=== PATIENT | female | born 1985 | race Asian ===

== ENCOUNTER → 2021-07-05 16:00 | Outpatient (CLI) | payer OTHER, SELFPAY ==
[2021-07-05 16:48] LABS: Add Manual Diff / Slide Review NO; Basophils Absolute Auto 0 /uL (0-100); Basophils Percent Auto 0.5 % (0-2); Eosinophils Absolute Auto 100 /uL (0-450); Eosinophils Percent Auto 1.8 % (2-4); Lymphocytes Absolute Auto 1600 /uL (1100-4500); Lymphocytes Percent Auto 24.5 % (25-40); Mean Corpuscular HGB Conc 34.1 % (30-36); Mean Corpuscular Hemoglobin 30.9 PG (26-34); Mean Corpuscular Volume 90.5 fL (80-100); Monocytes Absolute Auto 400 /uL (0-900); Monocytes Percent Auto 6.6 % (3-14); Neutrophils Absolute Auto 4400 /uL (1500-7000); Neutrophils Percent Auto 66.6 % (50-75); Platelet Count 261 X10^3/uL (150-400); Red Blood Cell Count 4.19 X10^6/uL (4.0-5.2); Red Cell Distribution Width 12.7 % (11.6-14.8); White Blood Cell Count 6.7 X10^3/uL (4.5-11.0)
[2021-07-05 17:31] LABS: Appearance Urine UA CLEAR; Bilirubin Urine UA NEGATIVE (NEGATIVE); Color Urine UA YELLOW; Glucose Urine UA NEGATIVE (Negative); Ketones Urine UA NEGATIVE (NEGATIVE); Leukocyte Esterase Urine UA TRACE (NEGATIVE); Nitrite Urine UA NEGATIVE (Negative); Occult Blood Urine UA TRACE-LYSED (Negative); Protein Urine UA NEGATIVE (Negative); Specific Gravity Urine UA 1.025 (1.000-1.035); Urobilinogen Urine UA 0.2 E.U./dL (0.2)
[2021-07-05 17:43] LABS: RBC Urine None Seen (0-5/HPF); Squamous Epithelial Cell Urine 0-1 /HPF (0-5/HPF); WBC Urine 0-1/HPF (0-5/HPF)
[2021-07-05 17:44] LABS: Bacteria Urine Occasional (0-1); Mucus Urine 1+ (Negative)
[2021-07-05 18:05] LABS: Hepatitis B Surface Antigen NEGATIVE s/c (NEGATIVE); Rubella Antibody IgG 30.3 IU/mL (>15)
[2021-07-05 18:11] LABS: HIV 1 & 2 Ab/Ag 4th Gen Combo NEGATIVE (NEGATIVE); Hep C Virus Ab w/Reflex Quant NEGATIVE s/c (NEGATIVE)
[2021-07-06 09:40] LABS: RPR Screen Non Reactive (Non Reactive)
[2021-07-07 08:14] LABS: Varicella IgG Antibody <135 index (Immune >165)
== END ==
PROVIDERS: Referring Provider Family Medicine; Visit Provider Family Medicine
DX: Z34.81 Encounter for supervision of other normal pregnancy, first trimester (principal); Z34.82 Encounter for supervision of other normal pregnancy, second trimester; Z3A.14 14 weeks gestation of pregnancy
CPT/HCPCS: 36415; 80055; 81003; 81015; 81420; 86787; 86803; 86850; 86900; 86901; 87086; 87389

== ENCOUNTER → 2021-08-15 14:54 | Outpatient (CLI) | payer OTHER, SELFPAY ==
--- NOTE | 2021-08-15 14:55 | DI.US.S_ITS ---
PROCEDURE: US OB >= 14 WEEKS FETUS INDICATIONS: ANATOMY OUTSIDE/PRIOR DATING DATA: Estimated date of delivery (MAGDA) from first dating scan: 08/15/2021. The calculations are made using the 12/28/2021 MAGDA of 12/28/2021. TECHNIQUE: Real-time scanning was performed of the fetus, with image documentation and biometric measurements. Endovaginal scanning: No COMPARISON: None. FINDINGS: General: A single living intrauterine gestation is present. Presentation: Variable. Placenta: Placental position is anterior , without previa. Amniotic fluid index: 15.9 cm, normal range is 5-24 cm. heart rate: 152 beats per minute. Maternal cervical canal: 4.8 cm cm long. Normal lower limit is 2.5 cm. biometrics: Biparietal diameter: 21 weeks 2 days Head circumference: 21 weeks 1 day Abdominal circumference: 20 weeks 4 days Femur length: 19 weeks 4 days Clinically estimated gestational age: N/a Composite gestational age from present scan: 20 weeks 5 days Estimated weight and percentile: 342 g Anatomic survey: Neuro: Ventricles are non-dilated at less than 10 mm. Cisterna magna is normal at 3-11 mm. Cerebellum is normal in size and morphology. Possible small left choroid plexus cyst. Nuchal skin fold: Normal at less than 6 mm between 14-21 weeks gestational age. Face: Nose and lips, facial profile are normal. Spine: No evidence for spina bifida. Heart: 4-chambered heart is present, with normal ventricular outflow tracts. Left ventricular intracardiac focus. Diaphragm: Diaphragm is intact. Stomach: Left-sided stomach is present. Kidneys: No hydronephrosis. Normal is less than 5 mm in 2nd trimester, less than 7 mm in 3rd trimester. Cord: 3-vessel cord has orthotopic insertion. Marginal cord insertion site. Bladder: Normal in size. Extremities: All 4 extremities identified. IMPRESSION: 1. 20 week 5 day single living IUP. 2. Left ventricular intracardiac focus and possible choroid plexus cysts; otherwise anatomy appears normal. 3. Marginal cord insertion site roughly 1.2 cm from the placental edge. We strive to produce accurate, complete, and clear reports of imaging services. To assist us in improving patient care, this report was composed using standard report templates and voice recognition software. Therefore, it may contain abnormal punctuation, insertions and/or omissions. Occasional wrong-word or sound-alike substitutions may occur. Though we review the report and make efforts to correct it, we do recommend that the report be read carefully in proper context to recognize any text inaccuracies. Dictated by: Valerio DASILVA Interpreted: Nora Santiago MD on 08/15/2021 at 16:46 Transcribed by: KATHLEEN on 08/15/2021 at 16:51 Approved by: Nora Santiago M.D. on 08/15/2021 at 17:01
== END ==
PROVIDERS: Referring Provider Family Medicine; Visit Provider Family Medicine
DX: Z36.89 Encounter for other specified antenatal screening (principal); Z3A.20 20 weeks gestation of pregnancy
CPT/HCPCS: 76811

== ENCOUNTER → 2021-10-05 13:13 | Outpatient (CLI) | payer OTHER, SELFPAY ==
[2021-10-05 15:13] LABS: Hematocrit 36.4 % (36-46); Hemoglobin 12.2 g/dL (12.0-16.0)
[2021-10-05 16:00] LABS: GTT (PREG) 1 Hour PP 50gm Dose 126 mg/dL (76-139)
== END ==
PROVIDERS: Family Medicine; Referring Provider Family Medicine; Visit Provider Family Medicine
DX: Z3A.27 27 weeks gestation of pregnancy (principal); Z34.92 Encounter for supervision of normal pregnancy, unspecified, second trimester
CPT/HCPCS: 36415; 82950; 85014; 85018

== ENCOUNTER → 2021-12-05 14:20 | Outpatient (CLI) | payer OTHER, SELFPAY ==
[2021-12-06 13:53] LABS: Strep Grp B PCR NEG for Grp B Strep
== END ==
PROVIDERS: Visit Provider Family Medicine
DX: Z36.85 Encounter for antenatal screening for Streptococcus B (principal); Z3A.36 36 weeks gestation of pregnancy
CPT/HCPCS: 87653

== ENCOUNTER 2021-12-16 11:49 | Inpatient (IN) | payer OTHER, SELFPAY ==
[2021-12-16 13:27] LABS: COVID19 -Nasal RAPID Negative (Negative)
[2021-12-16 13:38] LABS: Add Manual Diff / Slide Review NO; Basophils Absolute Auto 0 /uL (0-100); Basophils Percent Auto 0.3 % (0-2); Eosinophils Absolute Auto 0 /uL (0-450); Eosinophils Percent Auto 0.5 % (2-4); Hematocrit 38.1 % (36-46); Hemoglobin 13.2 g/dL (12.0-16.0); Lymphocytes Absolute Auto 1300 /uL (1100-4500); Lymphocytes Percent Auto 15.4 % (25-40); Mean Corpuscular HGB Conc 34.5 % (30-36); Mean Corpuscular Hemoglobin 31.5 PG (26-34); Mean Corpuscular Volume 91.1 fL (80-100); Monocytes Absolute Auto 500 /uL (0-900); Monocytes Percent Auto 5.8 % (3-14); Neutrophils Absolute Auto 6400 /uL (1500-7000); Platelet Count 244 X10^3/uL (150-400); Red Blood Cell Count 4.18 X10^6/uL (4.0-5.2); Red Cell Distribution Width 13.6 % (11.6-14.8); White Blood Cell Count 8.2 X10^3/uL (4.5-11.0)
[2021-12-16] MEDS: LACTATED RINGERS 1,000 ML 100 ML IV ×2 (14:54→16:07)
[2021-12-16] MEDS: fentaNYL 100 MCG/2 ML INJ (16:07)
--- NOTE | 2021-12-16 16:07 | PM.AN.REGBLK ---
Regional Block Pre-procedure Procedure: Continuous Lumbar Epidural for L&D Attending OB provider: Cindy Diaz PMH/ROS narrative: Hx: No personal or family history of anesthesia problems. PSH/Anesthesia history narrative: previous epidural without issues Exam narrative: MP3, RRR, CTAB ASA Class: II Labs: Hct 38.1 % (36-46) 12/16/21 12:45 Plt Count 244 X10^3/uL (150-400) 12/16/21 12:45 Medications: Current Medications Generic Name Dose Route Start Last Admin Trade Name Freq PRN Reason Stop Dose Admin Carboprost Tromethamine 250 mcg 12/16/21 13:23 Carboprost 250 Mcg/Ml Ampul IM Q90M PRN Bleeding Lactated Ringer's 1,000 mls @ 100 mls/hr 12/16/21 13:30 12/16/21 14:54 Lactated Ringers IV 100 mls/hr CONT LIVE Administration Oxytocin/Lactated Ringer's 30 unit in 500 mls @ 200 mls/hr 12/16/21 13:23 Oxytocin Premix IV CONT PRN Bleeding Protocol Tranexamic Acid 1,000 mg/ 100 mls @ 200 mls/hr 12/16/21 13:23 Sodium Chloride IV NOW PRN Bleeding Methylergonovine Maleate 0.2 mg 12/16/21 13:23 Methylergonovine 0.2 Mg Tablet PO Q6HR PRN Heavy Bleeding Methylergonovine Maleate 0.2 mg 12/16/21 13:23 Methylergonovine 0.2 Mg/Ml Vial IM NOW PRN Bleeding Misoprostol 800 mcg 12/16/21 13:23 Misoprostol 200 Mcg Tablet [place] NOW PRN Bleeding Misoprostol 1,000 mcg 12/16/21 13:23 Misoprostol 200 Mcg Tablet [place] NOW PRN Bleeding Misoprostol 400 mcg 12/16/21 13:23 Misoprostol 200 Mcg Tablet SL NOW PRN Bleeding Oxytocin 10 unit 12/16/21 13:23 Oxytocin 10 Unit/Ml Vial IM NOW PRN Bleeding Allergies: Allergies Allergy/AdvReac Type Severity Reaction Status Date / Time No Known Drug Allergies Allergy Verified 10/31/21 12:14 Procedure Insertion date: 12/16/21 Insertion time: 15:42 Prep/Local: betadine x3 (chloroprep) and 1% lidocaine Interspace: L2-3 Patient position: sitting Needle: 18 gauge Seratead (with 27G pencil point needle-through needle for IT dose) Loss of resistance with: saline (with air bubble) AALIYAH at (cm): 6 Catheter placed at SKIN (cm): 11 Catheter in SPACE (cm): 5 Insertion: Yes CSF, No Blood, No Paresthesia with insertion, No Paresthesia with injection and No Test dose reaction Initial Medications TEST DOSE time: 15:42 TEST DOSE: 1.5% lidocaine with epinephrine 1:200k (mL): 5 (3mL initial test dose, 2mL as part of first bolus) BOLUS DOSE time: 15:43 BOLUS DOSE (mL): 2 BOLUS DOSE med: other (10mcg fentanyl intrathecally, 90mcg fentanyl via epidural catheter) Infusion INFUSION: 0.0625% bupivacaine and with fentanyl 2 mcg/mL Initial rate (mL/hr): 10 (PEIB 40 minutes with bolus of 4mL Q15min lockout) Subsequent interventions: Initial placement L3-4, AALIYAH 6cm with saline and air bubble, (+) CSF with needle through needle, 10mcg fentanyl given intrathecally. Catheter threaded easily, but (+) blood on aspiration. Catheter removed and flushed with air. Level above anesthetized with 1% lidocaine, AALIYAH 6 cm, no dural puncture. Catheter threaded easily with negative aspiration. Post-procedure Anesthesia time START: 15:22 Anesthesia time END: 17:09 Post-procedure Anesthesia Assessment: No Anesthesia complications
[2021-12-16] MEDS: FENT 2MCG/ML BUPIV 0.125% EPI 200 MCG/100 ML PLAST..BAG 4 MCG EPIDURAL (16:09)
--- NOTE | 2021-12-16 16:41 | P.HPOB_ITS ---
OB HPI Date/Time Date of admission: 12/16/21 Date Patient Seen: 12/16/21 Time Patient Seen: 04:05 History of Present Condition Chief complaint: active labor, blood on underwear MAGDA Calculator Estimated Delivery Date Method Current WG Current Estimate 12/30/21 Manual 38w 0d Final MAGDA - GREG Other Estimates 12/30/21 LMP (Certain) 38w 0d 12/27/21 Ultrasound #1 38w 3d : 2 Para: 1 care: good care, initiated at week # (10), number of visits (10) and pounds weight gain (21) Dating criteria OB: LMP confirmed by 1st trimester US Ultrasounds: normal 1st trimester US and normal mid trimester US Obstetrical complications: none Medical complications OB: none Preadmission Labs Last OB Lab Results: Blood Type A Positive 12/16/21 12:45 12/16/21 Antibody Screen Negative 12/16/21 12:45 12/16/21 Hematocrit 38.1 % (36-46) 12/16/21 12:45 12/16/21 Hemoglobin 13.2 g/dL (12.0-16.0) 12/16/21 12:45 12/16/21 Hepatitis B Surface Antigen Negative s/c (NEGATIVE) 07/05/21 16:19 07/05/21 Hepatitis C Antibody Negative s/c (NEGATIVE) 07/05/21 16:19 07/05/21 Rubella Antibody 30.3 IU/mL (>15) 07/05/21 16:19 07/05/21 Varicella-Zoster IgG Antibody <135 index (Immune >165) L 07/05/21 16:19 07/05/21 Glucose 1 Hour 126 mg/dL (76-139) 10/05/21 14:20 10/05/21 Group B Streptococcus (PCR) Neg for grp b strep 12/05/21 14:20 12/05/21 -: Chlamydia screen: negative, Gonorrhea screen: negative and Urine: negative Genetic Screens: Cell-free DNA: Normal (normal male) External Labs -: Urine: negative Prior (ies) Past Pregnancies Del. Date GA/Weeks Labor Lgth Wt Sex Route Outcome Anesthesia Place Delv Breastfeed Preg Comp Name 06/29/17 38 5 6 lb 6 oz Female vaginal live - full term ep idural [place] 9 months none [place] Delivery Date: 06/29/17 Last Updated by: Tiffanie Manrique R.N. *SROM 6 am at home. *2nd Tear with Repair. *No issues PP. Evaluation Evaluation Baseline heart rate: 135 Variability: Moderate (11-25) monitor accelerations: Present Monitor Decelerations: Absent Contraction Frequency (minutes): 3 Uterine Contraction Intensity: Strong/Firm Status: Category l Dilation (cm): 9 Effacement (%): 100 station: 0 Position of cervix: anterior Consistency: soft [facility] Medical History (Updated 05/31/21 @ 14:40 by Tiffanie Manrique RN) AMA (advanced maternal age) multigravida 35+ (spontaneous vaginal delivery) (~06/29/17) Surgical History (Updated 05/31/21 @ 14:41 by Tiffanie Manrique RN) [place] teeth extracted Family History (Updated 05/31/21 @ 14:39 by Tiffanie Manrique RN) Father Healthy adult Mother Hypertension Grandfather Old age Grandmother Diabetes mellitus Old age Grandfather Heart disease Grandmother No problems noted. Family/Other Heart problem Social History marital status: number of children: 1 household members: spouse and children lives independently: Yes caregiver/support person: No pets and animals: No education level: college (Economic Management) occupational status: unemployed current occupational exposures/hazards: No special alex needs: No Smoking Status: Never smoker second hand exposure: No alcohol intake: former (pre- : not recently when in University ) substance use type: does not use Meds Home Medications and Allergies Home Medications Medication Instructions Recorded Confirmed Type prenat.vits,,[id number] 1 tab PO DAILY 05/31/21 10/31/21 History double electric breast pump & #1 ea 11/29/21 11/29/21 Rx supplies Allergies Allergy/AdvReac Type Severity Reaction Status Date / Time No Known Drug Allergies Allergy Verified 10/31/21 12:14 OB Exam Narrative Exam Narrative: Generally: Patient comfortable with epidural Lungs: Clear to auscultation bilaterally Cardiovascular: Regular rate and rhythm Fundal height: 37 cm Estimated weight: 6-1/2 lb Extremities: No edema Objective Labs Result Diagrams: 12/16/21 12:45 Labs: Laboratory Results - last 24 hr 12/16/21 12/16/21 12/16/21 12:45 12:45 13:11 WBC 8.2 RBC 4.18 Hgb 13.2 Hct 38.1 MCV 91.1 MCH 31.5 MCHC 34.5 RDW 13.6 Plt Count 244 Neut % (Auto) 78.0 H Lymph % (Auto) 15.4 L [place] % (Auto) 5.8 Eos % (Auto) 0.5 L Baso % (Auto) 0.3 Neut # (Auto) 6400 Lymph # (Auto) 1300 [place] # (Auto) 500 Eos # (Auto) 0 Baso # (Auto) 0 SARS-CoV-2 (PCR) Negative Blood Type A Positive Antibody Screen Negative Assessment and Plan Assessment and Plan Assessment and Plan narrative: Assessment: 36-year-old 2 para 1 at 38 weeks gestation in active labor Comfortable with epidural Bulging bag of water Plan: Artificial rupture of membranes with blood-stained amniotic fluid Expected management to spontaneous vaginal delivery Time Spent with Patient Total time spent with greater than 50% in coordination of care (as documented) at patient's floor/unit and/or counseling patient:: less than 15 minutes
--- NOTE | 2021-12-16 17:26 | PM.OBPRVD ---
Labor & Delivery Delivery date: 12/16/21 Cervical ripening method: none Induction method: none Delivery augmentation: rupture of membranes Delivery monitor: external FHT and external uterine Route of delivery: Episiotomy description: None L&D Laceration Description: Perineal - 1st Degree Delivery repair: chromic Estimated blood loss (mL): 100 Anesthesia Type: Epidural Complications: None Narrative: Patient complete and pushed for 15 minutes. At 5:09 p.m., a live male delivered spontaneously in the [place] presentation. No nuchal cord. The remainder of the body delivered without difficulty and the infant was placed on mom's abdomen. After the cord stopped pulsing, the cord was double clamped and cut. Pitocin was given in the IV fluids. Cord bloods were obtained. The placenta delivered intact with a three-vessel cord at 5:17 p.m.. The fundus was massaged to firm. A first-degree perineal laceration was repaired with 2 0 chromic in the usual fashion. Hemostasis was achieved. Estimated blood loss 100 cc. Apgars 9 at 1 minute and 9 at 5 minutes. Epidural analgesia. . Mom and stable to recovery. weight 7 lb 3.5 oz. Baby 1: gender: Male Presentation: vertex Position: Left Occiput Anterior Placenta delivery description: Spontaneous Cord Vessel Description: 3 Vessels and Clamped/Cut (After cord stopped pulsing) score (1 min): 9 score (5 min): 9 weight: 7 lb 3.5 oz Plan for aftercare: Routine care
[2021-12-17 06:11] LABS: Hematocrit 35.2 % (36-46); Hemoglobin 11.9 g/dL (12.0-16.0)
[2021-12-17] MEDS: PRENATAL VIT,CALC/IRON/FOLIC 1 TABLET 1 TAB PO (08:10)
[2021-12-17] MEDS: DOCUSATE 100 MG CAPSULE PO (08:10)
[2021-12-17] MEDS: IBUPROFEN 600 MG TABLET PO (09:41)
--- NOTE | 2021-12-17 12:23 | PM.OBDS.1 ---
Discharge Providers Provider Date of admission: 12/16/21 11:49 Discharge Date: 12/17/21 Primary care physician: Doctor Renetta MD Consults: 12/16/21 13:26 Consult to Anesthesiology Urgent Comment: Consulting Provider: Anesthesiologist Reason for consultation: epidural 12/17/21 17:24 Consult to Automatic Spinning Lathe Operator Routine Comment: Discharge provider: Cindy Diaz MD Summary Hospital Course Date Patient Seen: 12/17/21 Time Patient Seen: 10:30 Diagnoses: Thirty-eight weeks gestation Artificial rupture of membranes Epidural analgesia Spontaneous vaginal delivery First-degree perineal laceration and repair Hospital Course: Patient is a 36-year-old 2 para 2 presented on December 16, 2021 in active labor. She received an epidural for pain management. Artificial rupture of membranes was performed. She progressed to complete dilation and had a very fast second stage. She had a spontaneous vaginal delivery without complication. She had a first-degree perineal laceration repair. Her course was unremarkable. She is discharged home on day # 1. Peripartum Data Infant Delivery Method: Natural Vaginal Laceration Description: Perineal - 1st Degree Episiotomy description: None Procedures: Epidural analgesia Artificial rupture membranes Spontaneous vaginal delivery First-degree perineal laceration repair complications: none [place] 1: Gender: Male Disposition of : home Status at Discharge Cognitive/behavioral status at discharge: oriented Functional status at discharge: independent ambulation Overall status at discharge: patient is progressing back to baseline Time Spent with Patient Time attestation: Total time spent providing and/or coordinating discharge services: Time spent: Less than 30 minutes Objective Labs Result Diagrams: 12/17/21 05:59 Labs: Laboratory Results - last 24 hr 12/16/21 12/16/21 12/16/21 12:45 12:45 13:11 WBC 8.2 RBC 4.18 Hgb 13.2 Hct 38.1 MCV 91.1 MCH 31.5 MCHC 34.5 RDW 13.6 Plt Count 244 Neut % (Auto) 78.0 H Lymph % (Auto) 15.4 L [place] % (Auto) 5.8 Eos % (Auto) 0.5 L Baso % (Auto) 0.3 Neut # (Auto) 6400 Lymph # (Auto) 1300 [place] # (Auto) 500 Eos # (Auto) 0 Baso # (Auto) 0 SARS-CoV-2 (PCR) Negative Blood Type A Positive Antibody Screen Negative 12/17/21 05:59 WBC RBC Hgb 11.9 L Hct 35.2 L MCV MCH MCHC RDW Plt Count Neut % (Auto) Lymph % (Auto) [place] % (Auto) Eos % (Auto) Baso % (Auto) Neut # (Auto) Lymph # (Auto) [place] # (Auto) Eos # (Auto) Baso # (Auto) SARS-CoV-2 (PCR) Blood Type Antibody Screen Exam Narrative Exam Narrative: Generally: Patient walking around in room, no acute distress Fundus: Firm at U -2 Extremities: Negative [place], no edema Discharge Plan Discharge Plan Patient Disposition: Home Provider Discharge Comment: Call with fever, chills, or bleeding vaginally more than a pad in an hour Ibuprofen 600 mg every 6 hours as needed for cramping Discharge orders & Medications Prescriptions: Continued prenat.vits,,[id number] Tablet 1 tab PO DAILY 0RF No Action (DME) double electric breast pump & supplies See Rx Instructions .ROUTE .MEDSUPPLY Qty: 1 0RF Rx Instructions: As directed Follow up/Referrals: Ada Mariscal MD [Physician] - 6 Weeks Diet/Activity/Treatments Diet: Regular Activity: Nothing in the vagina for 6 weeks Skin/Wound/Dressing Care Report to your healthcare provider any signs of infection, such as:: chills, fever, increased pain and unusual drainage Visit Report/Discharge Packet Instructions: DI for Labor and Delivery, Vaginal Discharge Data Primary Care Provider: Miscellaneous,Doctor
[2021-12-17 13:24] VITALS: BP 120/78; PULSE 83; RESP 16; TEMP 37
== END 2021-12-17 15:04 | disposition home or self-care (01) | DRG 807 ==
PROVIDERS: Admitting Provider Obstetrics & Gynecology; Referring Provider Obstetrics & Gynecology; Visit Provider Obstetrics & Gynecology
DX: O70.0 First degree perineal laceration during delivery (principal); Z37.0 Single live birth; Z3A.38 38 weeks gestation of pregnancy; Z20.822 Contact with and (suspected) exposure to COVID-19
CPT/HCPCS: 01967; 59025; 59050; 59400; 59409; 85014; 85018; 85025; 86850; 86900; 86901; 87635; C9803; G0379; J3010

== ENCOUNTER → 2022-07-19 12:35 | Outpatient (CLI) | payer OTHER, SELFPAY ==
[2022-07-19 14:08] LABS: Influenza A - CEPHEID Flu A NEGATIVE (NEGATIVE); Influenza B - CEPHEID Flu B NEGATIVE (NEGATIVE); Respiratory Syncytial Virus POSITIVE (Negative)
[2022-07-19 14:21] LABS: COVID-19 CEPHEID 4-PLEX PCR Negative (Negative)
== END ==
PROVIDERS: Visit Provider Registered Nurse
DX: R50.9 Fever, unspecified (principal)
CPT/HCPCS: 0241U

== ENCOUNTER → 2024-01-16 15:14 | Outpatient (CLI) | payer OTHER, SELFPAY ==
--- NOTE | 2024-01-16 15:16 | DI.CT.S_ITS ---
PROCEDURE: CT SINUS SCREEN WO CON INDICATIONS: CHRONIC PANSINUSITIS TECHNIQUE: Noncontrast 3.0 mm axial images acquired from the frontal sinuses to the mid-sella, with coronal and sagittal reformats. For radiation dose reduction, the following was used: automated exposure control, adjustment of mA and/or kV according to patient size. COMPARISON: None. FINDINGS: Image quality: Excellent. Maxillary Sinuses: No bony remodeling or destruction. Sinuses are clear. Ethmoid Air Cells: No bony remodeling or destruction. Sinuses are clear. Sphenoid Sinuses: No bony remodeling or destruction. Sinuses are clear. Frontal Sinuses: No bony remodeling or destruction. Sinuses are clear. Ostiomeatal Complexes: The ostiomeatal complexes are patent, yet they are constitutionally narrowed, with bilateral Octavia cells. Miscellaneous: Visualized intra-orbital contents are normal. There is a moderate right-sided jeremy bullosa and a small left-sided jeremy bullosa. No significant nasal septal deviation can be seen. IMPRESSION: No significant active paranasal sinus disease can be seen. The ostiomeatal complexes are patent, yet they are constitutionally narrowed, with bilateral Octavia cells. Dictated by: Aaron Vasques M.D. on 01/16/2024 at 14:58 Approved by: Aaron Vasques M.D. on 01/16/2024 at 14:59
== END ==
LOC: CT 15:15
PROVIDERS: Referring Provider Otolaryngology; Visit Provider Otolaryngology
DX: J32.4 Chronic pansinusitis (principal); R44.2 Other hallucinations; J34.89 Other specified disorders of nose and nasal sinuses
CPT/HCPCS: 70486